=== PATIENT | male | born 1960 | race Caucasian/White ===

== ENCOUNTER → 2017-08-09 | Outpatient (CLI) | payer MEDICARE, OTHER ==
[~2017-08-09] MED LIST: ALBU90OI INH; ALBU90OI6 INH; ALLO100 PO; AMLO5 PO; ATOR10 PO; AZIT500; Aranesp60 MCG/0.3 INJ; Azopt10 ML BOTHEYES; BENZ100A PO; BIOTIN5 MG MT; BUDE6HFA INH; BUME2 PO; CALC.25 PO; CALCAVITDA PO; CARV25 PO; CEFD300 PO; CLON.5 PO; CYCL10 PO; CYCL100 PO; CYCL25 PO; ELIQUIS2.5 MG PO; ENAL2.5 MT; ENAL5 PO; FEBU40TA PO; FURO40 PO; GABA100 PO; GUAI600ER PO; GUAI600T33 PO; HYDACE10B PO; HYDR1TAB94 PO; KAOPECTATE PO; LEVFLO250 PO; MEROPENEM-500 MG/50 IV; METR500 PO; MOXI400 PO; MYCO250 PO; Merrem1000 MG INJ; Mucinex1200 MG PO; NEBI5 PO; NIFE10 PO; Norco 5-325 Ta1 EACH PO; OMEP20ER PO; PRAV20 PO; PRED10 PO; PRED5 PO; Prednisone20 MG PO; Prilosec Otc20 MG PO; RISE35 PO; SACC250C PO; SIMV40 PO; SODBIC650 PO; Sodium Bicarbo650 MG PO; TIOT18 INH; TRAZ50 PO; Uloric80 MG PO; VALCYTE; VALGANCICLOVIR450 MG PO; VELPHORO500 MG PO; Valcyte450 MG MT; WARF5 PO; XARELTO15 MG PO; Zithromax250 MG PO; Zofran4 MG PO
[2017-08-11 11:07] LABS: Albumin 3.6 g/dL (3.5-5.0); Albumin 52.3 % (45.0-80.0); Protein, Total 6.8 g/dL (6.2-8.2)
== END ==
LOC: LAB SHORT 11:09 → LAB 11:09
PROVIDERS: Internal Medicine Nephrology
DX: E83.52 Hypercalcemia (principal)
CPT/HCPCS: 84165; 86334

== ENCOUNTER → 2017-08-27 | Outpatient (CLI) | payer MEDICARE, OTHER | END | disposition home or self-care (01) | LOC: LAB 11:57 → LAB SHORT 11:57 | DX: R19.7 Diarrhea, unspecified (principal) | CPT/HCPCS: 87493 ==

== ENCOUNTER → 2017-08-31 | Outpatient (CLI) | payer MEDICARE, OTHER | LOC: OLS 08:44 → LAB SHORT 08:44 | DX: R19.7 Diarrhea, unspecified (principal) | CPT/HCPCS: 87328 ==

== ENCOUNTER → 2017-09-16 | Outpatient (CLI) | payer MEDICARE, OTHER | LOC: PLD 07:37 → LAB SHORT 07:37 | DX: Q82.8 Other specified congenital malformations of skin (principal) | CPT/HCPCS: 88305 ==

== ENCOUNTER → 2018-04-09 | Outpatient (CLI) | payer MEDICARE ==
[~2018-04-09] MED LIST changes: +AZIT250 PO; +CEFEPIME HCL IV; +LEVFLO500 PO; +MEGESTROL400 MG/10 PO; +MERIBIN5 MG PO; +Norco 10-325 T1 EACH PO; -PRAV20 PO; +Pravachol40 MG PO; +TOBRAMYCIN300 MG/5 M IH
[2018-04-09 11:30] LABS: BASOPHILS ABSOLUTE AUTO 0.08 K/mm3 (0.00-0.23); BASOPHILS PERCENT AUTO 1 % (0-2); EOSINOPHILS PERCENT AUTO 3 % (0-6); Hematocrit 40.7 % (37.0-53.0); Hemoglobin 12.9 g/dL (13.5-17.5); IMMATURE GRAN ABSOLUTE AUTO 0.06 K/mm3 (0.00-0.10); IMMATURE GRAN PERCENT AUTO 0 % (0-1); LYMPHOCYTES ABSOLUTE AUTO 2.39 K/mm3 (0.84-5.20); LYMPHOCYTES PERCENT AUTO 16 % (21-46); MONOCYTES ABSOLUTE AUTO 0.76 K/mm3 (0.16-1.47); MONOCYTES PERCENT AUTO 5 % (4-13); Mean Corpuscular HGB 31.2 pg (26.0-34.0); Mean Corpuscular HGB Conc 31.7 g/dL (31.5-36.5); Mean Corpuscular Volume 98 fL (80-100); Mean Platelet Volume 9.5 fL (9.1-12.4); NEUTROPHILS ABSOLUTE AUTO 11.35 K/mm3 (1.96-9.15); NEUTROPHILS PERCENT AUTO 75 % (41-73); Platelet Count 225 K/mm3 (150-400); RDW Standard Deviation 50.8 fL (35.1-46.3); Red Blood Cell Count 4.14 M/mm3 (4.30-5.90); White Blood Cell Count 15.14 K/mm3 (4.00-11.30)
[2018-04-09 11:33] LABS: Bun/Creatinine Ratio 6.2 (12.0-20.0); Calcium, Blood 8.1 mg/dL (8.5-10.1); Creatinine, Blood 5.97 mg/dL (0.60-1.20); Potassium, Blood 4.6 mmol/L (3.5-5.5)
[2018-04-10 15:27] LABS: Adenovirus F 40/41 Not Detected (NOT DETECT); Astrovirus Not Detected (NOT DETECT); Campylobacter Sp Not Detected (NOT DETECT); Cryptosporidium Not Detected (NOT DETECT); Cyclospora Cayetanensis Not Detected (NOT DETECT); E. Coli O157 Not Detected (NOT DETECT); Entamoeba Histolytica Not Detected (NOT DETECT); Enteroaggregative E. coli-EAEC Not Detected (NOT DETECT); Enteropathogenic E. coli-EPEC Not Detected (NOT DETECT); Enterotoxigenic E. coli-ETEC Not Detected (NOT DETECT); Giardia Lamblia Not Detected (NOT DETECT); Plesiomonas Shigelloides Not Detected (NOT DETECT); Rotavirus A Not Detected (NOT DETECT); Salmonella Sp Not Detected (NOT DETECT); Sapovirus Not Detected (NOT DETECT); Shiga Toxin-prod E. coli-STEC Not Detected (NOT DETECT); Shigella/Enteroin E. coli-EIEC Not Detected (NOT DETECT); Vibrio Cholerae Not Detected (NOT DETECT); Vibrio Sp Not Detected (NOT DETECT); Yersinia Enterocolitica Not Detected (NOT DETECT)
[2018-04-10 19:15] LABS: Norovirus GI/GII Detected (NOT DETECT)
== END ==
LOC: LAB EV 11:21 → LAB SHORT 11:21
PROVIDERS: Emergency Medicine
DX: R55 Syncope and collapse (principal); R19.7 Diarrhea, unspecified
CPT/HCPCS: 80048; 85025; 87507

== ENCOUNTER 2019-01-21 17:37 | Emergency (ER) | payer MEDICARE, OTHER ==
[~2019-01-21] VITALS: Ht 188 cm; Wt 90.7 kg
== END 2019-01-21 19:43 | disposition home or self-care (01) ==
LOC: ER 17:37
DX: I82.612 Acute embolism and thrombosis of superficial veins of left upper extremity (principal); Z79.01 Long term (current) use of anticoagulants
CPT/HCPCS: 93971; 99283-25

== ENCOUNTER → 2019-03-27 | Outpatient (CLI) | payer MEDICARE, OTHER | END | disposition home or self-care (01) | LOC: LAB SHORT 10:42 → PLD 10:42 | DX: D04.5 Carcinoma in situ of skin of trunk (principal) | CPT/HCPCS: 88305 ==

== ENCOUNTER 2019-09-18 18:39 | Emergency (ER) | payer MEDICARE, OTHER ==
[~2019-09-18] VITALS: Ht 188 cm; Wt 102.1 kg
[2019-09-18 18:58] LABS: Source, Urine Clean Catch
[2019-09-18 19:06] LABS: Bilirubin, Urine Neg (Neg); Blood, Urine 1+ (Neg); Glucose Qualitative, Urine Neg (Neg); Ketones, Urine Neg (Neg); Leukocyte Esterase, Urine Neg (Neg); Nitrite, Urine Neg (Neg); Protein, Urine 1+ (Neg); Urobilinogen, Urine NORM (Normal)
[2019-09-18 19:10] LABS: Appearance, Urine Clear (Clear); Color, Urine Yellow (P-Yellow)
[2019-09-18 19:13] LABS: Bacteria Not Seen /hpf; Red Blood Cells, Urine Not Seen /hpf (0-2); Squamous Epithelial Cells Few /hpf (Few)
[2019-09-18 19:16] LABS: BASOPHILS ABSOLUTE AUTO 0.05 K/mm3 (0.00-0.23); BASOPHILS PERCENT AUTO 0 % (0-2); EOSINOPHILS ABSOLUTE AUTO 0.06 K/mm3 (0.00-0.68); EOSINOPHILS PERCENT AUTO 0 % (0-6); Hematocrit 44.3 % (37.0-53.0); Hemoglobin 14.2 g/dL (13.5-17.5); IMMATURE GRAN ABSOLUTE AUTO 0.09 K/mm3 (0.00-0.10); IMMATURE GRAN PERCENT AUTO 0 % (0-1); LYMPHOCYTES PERCENT AUTO 14 % (21-46); MONOCYTES ABSOLUTE AUTO 1.43 K/mm3 (0.16-1.47); MONOCYTES PERCENT AUTO 7 % (4-13); Mean Corpuscular HGB 29.2 pg (26.0-34.0); Mean Corpuscular HGB Conc 32.1 g/dL (31.5-36.5); Mean Corpuscular Volume 91 fL (80-100); Mean Platelet Volume 9.7 fL (9.1-12.4); NEUTROPHILS ABSOLUTE AUTO 15.93 K/mm3 (1.96-9.15); NEUTROPHILS PERCENT AUTO 78 % (41-73); Platelet Count 191 K/mm3 (150-400); RDW Coefficient Variation 12.8 % (11.7-14.2); RDW Standard Deviation 42.6 fL (35.1-46.3); Red Blood Cell Count 4.87 M/mm3 (4.30-5.90); White Blood Cell Count 20.36 K/mm3 (4.00-11.30)
[2019-09-18 19:34] LABS: Alanine Aminotransfer (ALT/SGP 29 U/L (12-78); Albumin, Blood 3.1 g/dL (3.4-5.0); Albumin/Globulin Ratio 0.8 (0.8-1.8); Alk Phos 100 U/L (50-136); Anion Gap 8 mmol/L (6-16); Aspartate Aminotrans (AST/SGOT 36 U/L (12-37); Bilirubin, Total 0.6 mg/dL (0.1-1.0); Blood Urea Nitrogen 23 mg/dL (8-24); Bun/Creatinine Ratio 20.2 (12.0-20.0); CO2, Blood 20 mmol/L (21-32); Calcium, Blood 8.1 mg/dL (8.5-10.1); Chloride, Blood 107 mmol/L (98-108); Creatinine, Blood 1.14 mg/dL (0.60-1.20); Globulin, Blood 4.1 g/dL (2.2-4.0); Glomerular Filtration Rate >60 (60-); Glucose, Blood 103 mg/dL (70-99); Potassium, Blood 4.6 mmol/L (3.5-5.5); Sodium, Blood 135 mmol/L (136-145); Total Protein, Blood 7.2 g/dL (6.4-8.2)
[2019-09-18] MEDS ORDERED: Phospha 250 Ne250 MG PO (20:18)
[2019-09-18] MEDS ORDERED: ACET500 PO (20:19)
[2019-09-18] MEDS ORDERED: TACR1 PO (20:19)
[2019-09-18] MEDS ORDERED: SODIUM CHLORIDE4 ML INH (20:19)
[2019-09-18] MEDS ORDERED: Ventolin/Prove6.7 GM INH (20:20)
[2019-09-18] MEDS ORDERED: Calcitriol0.25 MCG PO (20:21)
[2019-09-18] MEDS ORDERED: CARVEDILOL3.125 MG PO (20:22)
[2019-09-18] MEDS ORDERED: SODBIC650 PO (20:23)
[2019-09-18] MEDS ORDERED: TUMS500 MG PO (20:23)
[2019-09-18] MEDS ORDERED: Vitamin D2000 UNIT PO (20:24)
[2019-09-18] MEDS ORDERED: CENTRUM SILVER1 EAC2 PO (20:24)
[2019-09-18] MEDS ORDERED: AZIT250 PO (20:25)
== END 2019-09-18 20:55 | disposition home or self-care (01) ==
LOC: ER 18:39
PROVIDERS: Physician Assistant
DX: R10.9 Unspecified abdominal pain (principal); D72.829 Elevated white blood cell count, unspecified; R50.9 Fever, unspecified; M54.9 Dorsalgia, unspecified; G89.29 Other chronic pain; Z87.01 Personal history of pneumonia (recurrent); Z86.718 Personal history of other venous thrombosis and embolism; M10.9 Gout, unspecified; Z79.52 Long term (current) use of systemic steroids; Z79.899 Other long term (current) drug therapy; Z79.2 Long term (current) use of antibiotics; Z94.0 Kidney transplant status
CPT/HCPCS: 36415; 80053; 81001; 83690; 85025; 99284

== ENCOUNTER → 2019-10-05 | Outpatient (CLI) | payer MEDICARE, OTHER ==
[~2019-10-05] MED LIST changes: +ACET500 PO; +CARVEDILOL3.125 MG PO; +CENTRUM SILVER1 EAC2 PO; +Calcitriol0.25 MCG PO; +Phospha 250 Ne250 MG PO; +SODIUM CHLORIDE4 ML INH; +TACR1 PO; +TUMS500 MG PO; +Ventolin/Prove6.7 GM INH; +Vitamin D2000 UNIT PO
== END | disposition home or self-care (01) ==
LOC: PLD 12:56 → LAB SHORT 12:56
DX: C44.622 Squamous cell carcinoma of skin of right upper limb, including shoulder (principal); D04.39 Carcinoma in situ of skin of other parts of face
CPT/HCPCS: 88305

== ENCOUNTER 2020-12-22 16:59 | Emergency (ER) | payer MEDICARE, OTHER ==
[~2020-12-22] VITALS: Ht 190.5 cm; Wt 108.9 kg
[2020-12-22 18:46] LABS: SARS-Cov-2 (COVID-19) PCR, MMC NEGATIVE (NEGATIVE)
== END 2020-12-22 20:18 | disposition home or self-care (01) ==
LOC: ER 16:59
PROVIDERS: Physician Assistant
DX: S81.811A Laceration without foreign body, right lower leg, initial encounter (principal); Z20.822 Contact with and (suspected) exposure to COVID-19; N18.6 End stage renal disease; Z23 Encounter for immunization; Z79.899 Other long term (current) drug therapy; Z79.01 Long term (current) use of anticoagulants; X58.XXXA Exposure to other specified factors, initial encounter
CPT/HCPCS: 12004; 36415; 73590; 90471; 90714; 99283-25; U0004

== ENCOUNTER 2020-12-30 06:33 | Emergency (ER) | payer MEDICARE, OTHER ==
[~2020-12-30] VITALS: Ht 190.5 cm; Wt 108.9 kg
[2020-12-30] MEDS ORDERED: SULFAMETHOXAZO1 EAC1 PO (06:55)
[2020-12-30] MEDS ORDERED: AMOX-CLAV 875-1 EAC5 PO (06:55)
== END 2020-12-30 07:30 | disposition home or self-care (01) ==
LOC: ER 06:33
DX: S81.811D Laceration without foreign body, right lower leg, subsequent encounter (principal); L03.115 Cellulitis of right lower limb; N18.6 End stage renal disease; Z79.899 Other long term (current) drug therapy; Z79.01 Long term (current) use of anticoagulants; Z86.718 Personal history of other venous thrombosis and embolism
CPT/HCPCS: 99282

== ENCOUNTER → 2021-04-29 | Outpatient (CLI) | payer MEDICARE, OTHER ==
[~2021-04-29] MED LIST changes: +AMOX-CLAV 875-1 EAC5 PO; +SULFAMETHOXAZO1 EAC1 PO
== END | disposition home or self-care (01) ==
LOC: LAB SHORT 08:01
DX: D04.61 Carcinoma in situ of skin of right upper limb, including shoulder (principal)
CPT/HCPCS: 88305

== ENCOUNTER → 2021-05-15 | Outpatient (CLI) | payer MEDICARE, OTHER | END | disposition home or self-care (01) | LOC: LAB SHORT 14:59 | DX: D04.5 Carcinoma in situ of skin of trunk (principal); L90.5 Scar conditions and fibrosis of skin | CPT/HCPCS: 88305 ==

== ENCOUNTER → 2021-06-10 | Outpatient (CLI) | payer MEDICARE, OTHER | END | disposition home or self-care (01) | LOC: LAB SHORT 08:01 | DX: L57.0 Actinic keratosis (principal); L57.8 Other skin changes due to chronic exposure to nonionizing radiation | CPT/HCPCS: 88305 ==

== ENCOUNTER → 2022-04-14 | Outpatient (CLI) | payer MEDICARE, OTHER | END | disposition home or self-care (01) | LOC: PLD 08:11 → LAB SHORT 08:11 | DX: C44.329 Squamous cell carcinoma of skin of other parts of face (principal) | CPT/HCPCS: 88305 ==

== ENCOUNTER 2022-08-25 09:12 | Day surgery (SDC) | payer MEDICARE, OTHER ==
[~2022-08-25] VITALS: Ht 190.5 cm; Wt 102.7 kg
[2022-08-25] MEDS ORDERED: AZIT250 (09:48)
[2022-08-25] MEDS ORDERED: ALBU2.5V5 (09:48)
[2022-08-25] MEDS ORDERED: TACR1 (09:49)
[2022-08-25] MEDS ORDERED: POTA20LUD (09:49)
[2022-08-25] MEDS ORDERED: FURO20 (09:49)
[2022-08-25 10:45] VITALS: BP 105/91
--- NOTE | 2022-08-25 11:04 | NUR ---
08/25/22 1104 ANTHONY FORD NOTED - PT STATES THIS IS NORMAL FOR HIM. IT WOULD BE ABNORMAL IF HE DIDN'T HAVE THEM SINCE HE HAS BRONCHIALECTESIS
== END 2022-08-25 11:00 | disposition home or self-care (01) ==
LOC: ORSCSDS 09:12
PROVIDERS: Surgery
PROC: 0DJD8ZZ Inspection of Lower Intestinal Tract, Via Natural or Artificial Opening Endoscopic (ICD-10-PCS; principal; 2022-08-25 10:30)
DX: R10.30 Lower abdominal pain, unspecified (principal); R14.0 Abdominal distension (gaseous); K57.30 Diverticulosis of large intestine without perforation or abscess without bleeding; K64.8 Other hemorrhoids; K21.9 Gastro-esophageal reflux disease without esophagitis; E78.5 Hyperlipidemia, unspecified; I12.9 Hypertensive chronic kidney disease with stage 1 through stage 4 chronic kidney disease, or unspecified chronic kidney disease; N18.9 Chronic kidney disease, unspecified; Z94.0 Kidney transplant status; Z79.01 Long term (current) use of anticoagulants; Z79.899 Other long term (current) drug therapy
CPT/HCPCS: J2704; J7120

== ENCOUNTER 2023-04-16 07:07 | Day surgery (SDC) | payer MEDICARE, OTHER ==
[~2023-04-16] VITALS: Ht 188 cm; Wt 103.8 kg
[~2023-04-16 07:07] MED LIST changes: +ALBU2.5V5; +AZIT250; +FURO20; +POTA20LUD; +TACR1
--- NOTE | 2023-04-16 09:23 | NUR ---
04/16/23 0923 Anuradha Mckenna SMALL CIRCULAR ABRASION ON PT RIGHT JOE. DR KOENIG NOTIFIED. OK TO CONTINUE.
[2023-04-16 11:02] VITALS: BP 126/99
--- NOTE | 2023-04-16 11:18 | NUR ---
04/16/23 1118 Santino Cartagena PT VSS IN SDU. PT STATED PAIN 5/10, PT STATED TOLERABLE NUMBER TO GO HOME. PT WAS GIVEN ORAL PAIN MEDICATION, PT STATED PAIN 3/10 ACHE AT OPERATIVE SITE RIGHT BEFORE DISCHARGE. DISCHARGE INSTRUCTIONS GIVEN TO PATIENT WITH AT BEDSIDE. ALL QUESTIONS ANSWERED BEFORE DISCHARGE. SEE VS STRIP FOR COMPLETE DETAILS. POLAR PACK EXPAINED AND SENT HOME WITH PATIENT.
== END 2023-04-16 11:18 | disposition home or self-care (01) ==
LOC: ORSCSDS 07:07
PROVIDERS: Orthopaedic Surgery
PROC: 0SQC4ZZ Repair Right Knee Joint, Percutaneous Endoscopic Approach (ICD-10-PCS; principal; 2023-04-16 08:30)
DX: S83.281A Other tear of lateral meniscus, current injury, right knee, initial encounter (principal); Z94.0 Kidney transplant status; Z86.718 Personal history of other venous thrombosis and embolism; I10 Essential (primary) hypertension; Z79.01 Long term (current) use of anticoagulants; Z79.899 Other long term (current) drug therapy
CPT/HCPCS: A9270; J0171; J0690; J1100; J2250; J2405; J2704; J2795; J3010; J7120

== ENCOUNTER → 2023-05-20 | Outpatient (CLI) | payer MEDICARE, OTHER | LOC: LAB 12:05 → LAB SHORT 12:05 | DX: Z47.89 Encounter for other orthopedic aftercare (principal) | CPT/HCPCS: 87070; 87075; 87205 ==

== ENCOUNTER 2023-08-28 08:23 | Inpatient (IN) | payer MEDICARE, OTHER ==
[~2023-08-28] VITALS: Ht 188 cm; Wt 103.0 kg
[~2023-08-28 08:23] MED LIST changes: -ALBU2.5V5; +ALBU2.5V5 INH; -TACR1
[2023-08-28] MEDS ORDERED: SULTRIDS PO (08:45)
[2023-08-28] MEDS ORDERED: AMOX-CLAV 875-1 EAC5 PO (08:47)
[2023-08-28 09:32] LABS: BASOPHILS ABSOLUTE AUTO 0.05 K/mm3 (0.00-0.23); BASOPHILS PERCENT AUTO 1 % (0-2); EOSINOPHILS ABSOLUTE AUTO 0.07 K/mm3 (0.00-0.68); EOSINOPHILS PERCENT AUTO 1 % (0-6); Hematocrit 45.8 % (37.0-53.0); Hemoglobin 14.8 g/dL (13.5-17.5); IMMATURE GRAN ABSOLUTE AUTO 0.02 K/mm3 (0.00-0.10); IMMATURE GRAN PERCENT AUTO 0 % (0-1); LYMPHOCYTES PERCENT AUTO 18 % (21-46); MONOCYTES ABSOLUTE AUTO 0.55 K/mm3 (0.16-1.47); MONOCYTES PERCENT AUTO 7 % (4-13); Mean Corpuscular HGB 28.8 pg (26.0-34.0); Mean Corpuscular HGB Conc 32.3 g/dL (31.5-36.5); Mean Corpuscular Volume 89 fL (80-100); Mean Platelet Volume 8.9 fL (9.1-12.4); NEUTROPHILS PERCENT AUTO 74 % (41-73); Platelet Count 181 K/mm3 (150-400); RDW Standard Deviation 45.5 fL (35.1-46.3); Red Blood Cell Count 5.14 M/mm3 (4.30-5.90); White Blood Cell Count 8.29 K/mm3 (4.00-11.30)
[2023-08-28 10:20] LABS: Albumin, Blood 3.3 g/dL (3.4-5.0); Albumin/Globulin Ratio 0.9 (0.8-1.8); Bilirubin, Total 0.5 mg/dL (0.1-1.0); Bun/Creatinine Ratio 13.6 (12.0-20.0); Calcium, Blood 9.2 mg/dL (8.5-10.1); Creatinine, Blood 1.18 mg/dL (0.60-1.20); Globulin, Blood 3.5 g/dL (2.2-4.0); Potassium, Blood 4.9 mmol/L (3.5-5.5); Total Protein, Blood 6.8 g/dL (6.4-8.2)
[2023-08-28] MEDS ORDERED: Ondansetron 4 MG TAB PO PRN (11:40)
[2023-08-28] MEDS ORDERED: Ketorolac Tromethamine 30mg Vial IV PRN (11:55)
[2023-08-28] MEDS ORDERED: Cefepime HCl 1,000 MG in NS 100 ML IV SCH (12:00)
[2023-08-28 13:33] VITALS: BP 136/104
[2023-08-28] MEDS ORDERED: Albuterol 2.5 MG/3 ML VIAL INH PRN (15:00)
[2023-08-28 15:29] VITALS: BP 121/95
--- NOTE | 2023-08-28 16:48 | NUR ---
ER ADMIT Patient alert & oriented x4. Independent in the room. Admitted for cellulitis, left foot 2nd toe swollen and red, redness descending downward towards dorsum of foot. The 2nd left toe, old healing ulcer, skin is dry, no open wound bed and drainage. And left heal small dark purple area noted below surface of skin. IV Vanco administred. Vitals stable. Will continue plan of care.
[2023-08-28 19:09] VITALS: BP 132/95
[2023-08-28] MEDS ORDERED: Tacrolimus 1 MG Cap PO SCH (21:00)
[2023-08-28] MEDS ORDERED: Gabapentin 300 MG Cap PO SCH (21:00)
[2023-08-28] MEDS ORDERED: Mycophenolate Mofetil 250 MG Cap PO SCH (21:00)
[2023-08-28] MEDS ORDERED: Apixaban 5 MG Tab PO SCH (21:00)
[2023-08-28] MEDS ORDERED: Carvedilol 3.125 MG Tab PO SCH (21:00)
[2023-08-28] MEDS ORDERED: Sodium Chloride For Inhalation 7% 4 ML VIAL.NEB INH SCH (21:45)
[2023-08-28] MEDS ORDERED: NS 250 ML IV PRN (23:20)
[2023-08-29] MEDS ORDERED: Vancomycin HCL 1,250 MG in NS 250 ML IV SCH (01:00)
[2023-08-29 03:02] VITALS: BP 119/94
--- NOTE | 2023-08-29 04:10 | NUR ---
SHIFT SUMMARY BETTYE WAS ALERT AND FULLY ORIENTED ON ASSESSMENT AND INDEPENDENT IN THE ROOM. PT HAS CRACKLES IN BILATERAL LOWER LUNG TABARES THAT HE STATES IS CHRONIC PERIMETER OF REDNESS ON AFFECTED FOOT MARKED THIS SHIFT. NO NEW COMPLAINTS NO ACUTE EVENTS PT RESTING IN BED AT A LOW POSITION WITH CALL LIGHT IN REACH
[2023-08-29 05:14] LABS: BASOPHILS ABSOLUTE AUTO 0.03 K/mm3 (0.00-0.23); BASOPHILS PERCENT AUTO 0 % (0-2); EOSINOPHILS ABSOLUTE AUTO 0.13 K/mm3 (0.00-0.68); EOSINOPHILS PERCENT AUTO 2 % (0-6); Hematocrit 45.7 % (37.0-53.0); Hemoglobin 14.6 g/dL (13.5-17.5); IMMATURE GRAN ABSOLUTE AUTO 0.03 K/mm3 (0.00-0.10); IMMATURE GRAN PERCENT AUTO 0 % (0-1); LYMPHOCYTES ABSOLUTE AUTO 2.02 K/mm3 (0.84-5.20); LYMPHOCYTES PERCENT AUTO 27 % (21-46); MONOCYTES PERCENT AUTO 8 % (4-13); Mean Corpuscular HGB 28.9 pg (26.0-34.0); Mean Corpuscular HGB Conc 31.9 g/dL (31.5-36.5); Mean Corpuscular Volume 90 fL (80-100); Mean Platelet Volume 9.4 fL (9.1-12.4); NEUTROPHILS PERCENT AUTO 63 % (41-73); Platelet Count 179 K/mm3 (150-400); RDW Standard Deviation 46.2 fL (35.1-46.3); Red Blood Cell Count 5.06 M/mm3 (4.30-5.90); White Blood Cell Count 7.51 K/mm3 (4.00-11.30)
[2023-08-29 05:54] LABS: Albumin, Blood 3.2 g/dL (3.4-5.0); Albumin/Globulin Ratio 0.9 (0.8-1.8); Bilirubin, Total 0.6 mg/dL (0.1-1.0); Calcium, Blood 9.2 mg/dL (8.5-10.1); Creatinine, Blood 1.27 mg/dL (0.60-1.20); Globulin, Blood 3.5 g/dL (2.2-4.0); Potassium, Blood 4.8 mmol/L (3.5-5.5); Total Protein, Blood 6.7 g/dL (6.4-8.2)
[2023-08-29] MEDS ORDERED: Gabapentin 100 MG Cap PO SCH (09:00)
[2023-08-29] MEDS ORDERED: Tacrolimus 1 MG Cap PO SCH (09:00)
[2023-08-29] MEDS ORDERED: Enoxaparin 40 MG/0.4 ML SYR SC SCH (09:00)
[2023-08-29] MEDS ORDERED: Cholecalciferol 1000 Unit Tablet (=25MCG) PO SCH (09:00)
[2023-08-29] MEDS ORDERED: Multivitamins/Minerals 1 Tab PO SCH (09:00)
[2023-08-29] MEDS ORDERED: PredniSONE 5 MG Tab PO SCH (09:00)
[2023-08-29 09:09] VITALS: BP 129/92
[2023-08-29 09:10] VITALS: BP 113/89
[2023-08-29] MEDS ORDERED: Lactobacil 2-S.Thermo-Bifido 1 1 Cap PO SCH (09:50)
[2023-08-29] MEDS ORDERED: NS 1,000 ML IV SCH (10:45)
--- NOTE | 2023-08-29 18:02 | NUR ---
SHIFT SUMMARY PT AXO, PLEASANT AND COOPERATIVE WITH CARE. UP AD RICKY INDEPENDENTLY IN ROOM. PT REPORTS DIARRHEA, DR SHINE NOTIFIED AND PROBIOTIC ORDERED. IV PATENT AND INFUSING PER EMAR. NO ACUTE CHANGES THIS SHIFT. BED IN LOW POSITON, CALL LIGHT WITHIN REACH.
[2023-08-29 18:13] VITALS: BP 127/94
[2023-08-29 19:30] VITALS: BP 112/86
[2023-08-30 00:21] LABS: Vancomycin, Trough 17.9 ug/mL (5.0-10.0)
[2023-08-30 00:26] LABS: BASOPHILS ABSOLUTE AUTO 0.04 K/mm3 (0.00-0.23); BASOPHILS PERCENT AUTO 1 % (0-2); EOSINOPHILS ABSOLUTE AUTO 0.11 K/mm3 (0.00-0.68); EOSINOPHILS PERCENT AUTO 1 % (0-6); Hematocrit 43.1 % (37.0-53.0); Hemoglobin 13.9 g/dL (13.5-17.5); IMMATURE GRAN ABSOLUTE AUTO 0.01 K/mm3 (0.00-0.10); IMMATURE GRAN PERCENT AUTO 0 % (0-1); LYMPHOCYTES ABSOLUTE AUTO 2.08 K/mm3 (0.84-5.20); LYMPHOCYTES PERCENT AUTO 25 % (21-46); MONOCYTES ABSOLUTE AUTO 0.58 K/mm3 (0.16-1.47); MONOCYTES PERCENT AUTO 7 % (4-13); Mean Corpuscular HGB 28.7 pg (26.0-34.0); Mean Corpuscular HGB Conc 32.3 g/dL (31.5-36.5); Mean Corpuscular Volume 89 fL (80-100); Mean Platelet Volume 9.3 fL (9.1-12.4); NEUTROPHILS ABSOLUTE AUTO 5.58 K/mm3 (1.96-9.15); NEUTROPHILS PERCENT AUTO 66 % (41-73); Platelet Count 189 K/mm3 (150-400); RDW Coefficient Variation 13.6 % (11.7-14.2); RDW Standard Deviation 44.6 fL (35.1-46.3); Red Blood Cell Count 4.84 M/mm3 (4.30-5.90)
[2023-08-30 00:33] LABS: Alanine Aminotransfer (ALT/SGP 15 U/L (12-78); Albumin/Globulin Ratio 0.9 (0.8-1.8); Alk Phos 97 U/L (50-136); Anion Gap 11 mmol/L (3-11); Aspartate Aminotrans (AST/SGOT 13 U/L (12-37); Bilirubin, Total 0.4 mg/dL (0.1-1.0); Blood Urea Nitrogen 23 mg/dL (8-24); Bun/Creatinine Ratio 19.2 (12.0-20.0); CO2, Blood 22 mmol/L (21-32); Calcium, Blood 8.9 mg/dL (8.5-10.1); Chloride, Blood 112 mmol/L (98-108); Globulin, Blood 3.3 g/dL (2.2-4.0); Glomerular Filtration Rate 69 (60-); Glucose, Blood 100 mg/dL (70-99); Potassium, Blood 4.6 mmol/L (3.5-5.5); Sodium, Blood 140 mmol/L (136-145); Total Protein, Blood 6.3 g/dL (6.4-8.2)
[2023-08-30 03:36] VITALS: BP 126/95
--- NOTE | 2023-08-30 04:25 | NUR ---
SHIFT SUMMARY BETTYE WAS ALERT AND FULLY ORIENTED AT START OF SHIFT. PT IS LOOKING FORWARD TO DISCHARGE. AFFECTED FOOT CONTINUES TO HAVE REDUCED REDNESS, AND BORDERS ARE RECEEDING. NO CHANGES TO PT CONDITION, NO ACUTE EVENTS. PT RESTING IN BED AT A LOW POSITION WITH CALL LIGHT IN REACH.
[2023-08-30 05:52] LABS: Albumin, Blood 3.1 g/dL (3.4-5.0); Albumin/Globulin Ratio 0.9 (0.8-1.8); Bilirubin, Total 0.6 mg/dL (0.1-1.0); Calcium, Blood 9.2 mg/dL (8.5-10.1); Creatinine, Blood 1.12 mg/dL (0.60-1.20); Globulin, Blood 3.5 g/dL (2.2-4.0); Potassium, Blood 4.8 mmol/L (3.5-5.5); Total Protein, Blood 6.6 g/dL (6.4-8.2)
[2023-08-30 07:30] VITALS: BP 124/95
[2023-08-30] MEDS ORDERED: Calcitriol 0.25 MCG Cap PO SCH (09:00)
[2023-08-30] MEDS ORDERED: VISBIOME 112.51 EACH PO (11:44)
[2023-08-30] MEDS ORDERED: CIPR500 PO (11:44)
== END 2023-08-30 11:54 | disposition home or self-care (01) | DRG 603 ==
LOC: ER 08:23 → MEDS 08:24
PROVIDERS: Student in an Organized Health Care Education/Training Program; ADMIT Family Medicine
DX: L03.116 Cellulitis of left lower limb (principal); T86.19 Other complication of kidney transplant; D84.821 Immunodeficiency due to drugs; L03.032 Cellulitis of left toe; N18.9 Chronic kidney disease, unspecified; I12.9 Hypertensive chronic kidney disease with stage 1 through stage 4 chronic kidney disease, or unspecified chronic kidney disease; J47.9 Bronchiectasis, uncomplicated; Z86.718 Personal history of other venous thrombosis and embolism; Z79.01 Long term (current) use of anticoagulants; Z79.69 Long term (current) use of other immunomodulators and immunosuppressants; Z79.621 Long term (current) use of calcineurin inhibitor; Z79.2 Long term (current) use of antibiotics; Z79.52 Long term (current) use of systemic steroids
CPT/HCPCS: 36415; 80053; 80202; 85025; 94640; 94664; 94760; 96365; 96366; 96367; 96375; 96376; 99284-25; A9270; G0378; J0692; J3370; J7030; J7050; J7507; J7512; J7517

== ENCOUNTER 2024-04-26 17:51 | Inpatient (IN) | payer MEDICARE, OTHER ==
[~2024-04-26] VITALS: Ht 190.5 cm; Wt 102.7 kg
[~2024-04-26 17:51] MED LIST changes: +CIPR500 PO; +SULTRIDS PO; +VISBIOME 112.51 EACH PO
[2024-04-26 18:37] LABS: BASOPHILS ABSOLUTE AUTO 0.02 K/mm3 (0.00-0.23); BASOPHILS PERCENT AUTO 0 % (0-2); EOSINOPHILS PERCENT AUTO 0 % (0-6); Hematocrit 40.5 % (37.0-53.0); Hemoglobin 12.8 g/dL (13.5-17.5); IMMATURE GRAN ABSOLUTE AUTO 0.02 K/mm3 (0.00-0.10); IMMATURE GRAN PERCENT AUTO 0 % (0-1); LYMPHOCYTES ABSOLUTE AUTO 1.88 K/mm3 (0.84-5.20); LYMPHOCYTES PERCENT AUTO 18 % (21-46); MONOCYTES ABSOLUTE AUTO 0.58 K/mm3 (0.16-1.47); MONOCYTES PERCENT AUTO 5 % (4-13); Mean Corpuscular HGB 29.2 pg (26.0-34.0); Mean Corpuscular HGB Conc 31.6 g/dL (31.5-36.5); Mean Corpuscular Volume 92 fL (80-100); Mean Platelet Volume 9.9 fL (9.1-12.4); NEUTROPHILS ABSOLUTE AUTO 8.23 K/mm3 (1.96-9.15); NEUTROPHILS PERCENT AUTO 77 % (41-73); Platelet Count 119 K/mm3 (150-400); RDW Coefficient Variation 14.1 % (11.7-14.2); RDW Standard Deviation 48.3 fL (35.1-46.3); Red Blood Cell Count 4.39 M/mm3 (4.30-5.90); White Blood Cell Count 10.73 K/mm3 (4.00-11.30)
[2024-04-26 18:54] LABS: Albumin/Globulin Ratio 0.8 (0.8-1.8); Bilirubin, Total 0.5 mg/dL (0.1-1.0); Bun/Creatinine Ratio 18.5 (12.0-20.0); Calcium, Blood 8.7 mg/dL (8.5-10.1); Creatinine, Blood 2.11 mg/dL (0.60-1.20); Globulin, Blood 3.9 g/dL (2.2-4.0); Potassium, Blood 4.6 mmol/L (3.5-5.5); Total Protein, Blood 6.9 g/dL (6.4-8.2)
[2024-04-26] MEDS ORDERED: Ondansetron HCl 2 MG / ML 2ML Vial IV ONE (20:10)
[2024-04-26] MEDS ORDERED: Acetaminophen 500 MG Tab PO ONE (20:15)
[2024-04-26 20:33] LABS: CORONAVIRUS COVID-19 AG Negative (NEGATIVE); INFLUENZA A AG Positive (NEGATIVE); INFLUENZA B AG Negative (NEGATIVE)
[2024-04-26] MEDS ORDERED: NS 1,000 ML IV SCH (21:15)
[2024-04-26] MEDS ORDERED: Oseltamivir Phosphate 75 MG Cap PO ONE (22:20)
[2024-04-26] MEDS ORDERED: FLU VACC TS2024-25(6MOS UP)/PF 45 MCG/0.5 ML SYRINGE IM ONE (22:45)
[2024-04-27] VITALS (12 sets, daily range): BP systolic 86–126; BP diastolic 63–89
[2024-04-27] MEDS ORDERED: GABA300 PO (00:31)
[2024-04-27] MEDS ORDERED: NS 1,000 ML IV SCH ×2 (01:10→06:10)
[2024-04-27] MEDS ORDERED: Sodium Chloride For Inhalation 7% 4 ML VIAL.NEB INH SCH (01:40)
[2024-04-27] MEDS ORDERED: Mycophenolate Mofetil 250 MG Cap PO SCH ×2 (02:10→09:00)
[2024-04-27] MEDS ORDERED: Tacrolimus 1 MG Cap PO SCH ×3 (02:10→21:00)
[2024-04-27 04:20] LABS: BASOPHILS ABSOLUTE AUTO 0.02 K/mm3 (0.00-0.23); BASOPHILS PERCENT AUTO 0 % (0-2); EOSINOPHILS PERCENT AUTO 0 % (0-6); Hematocrit 37.7 % (37.0-53.0); Hemoglobin 11.9 g/dL (13.5-17.5); IMMATURE GRAN ABSOLUTE AUTO 0.04 K/mm3 (0.00-0.10); IMMATURE GRAN PERCENT AUTO 0 % (0-1); LYMPHOCYTES ABSOLUTE AUTO 1.83 K/mm3 (0.84-5.20); LYMPHOCYTES PERCENT AUTO 17 % (21-46); MONOCYTES ABSOLUTE AUTO 0.85 K/mm3 (0.16-1.47); MONOCYTES PERCENT AUTO 8 % (4-13); Mean Corpuscular HGB 29.2 pg (26.0-34.0); Mean Corpuscular HGB Conc 31.6 g/dL (31.5-36.5); Mean Corpuscular Volume 92 fL (80-100); Mean Platelet Volume 9.9 fL (9.1-12.4); NEUTROPHILS ABSOLUTE AUTO 8.12 K/mm3 (1.96-9.15); NEUTROPHILS PERCENT AUTO 75 % (41-73); Platelet Count 99 K/mm3 (150-400); RDW Coefficient Variation 14.3 % (11.7-14.2); RDW Standard Deviation 48.8 fL (35.1-46.3); Red Blood Cell Count 4.08 M/mm3 (4.30-5.90); White Blood Cell Count 10.86 K/mm3 (4.00-11.30)
--- NOTE | 2024-04-27 04:34 | NUR ---
ADMISSION/ EOS: PATIENT HAS BEEN ALERT AND ORIENTED X 4. ABLE TO MAKE NEEDS KNOWN, PLEASANT AND COOPERATIVE. PATIETN DOES ENDORSES MEDICATION INDUCED NERUOPATHY OF BLE FEET AND BUE HANDS. EXTENSIVE HISTORY OF MULTIPLE SURGERIES, OUTLINED IN H+P. PATIENT IS A PROFICIENT HISTORIAN. DENIES CHEST PAIN PRESSURE, BUT ENDORSES SOME MINOR SOB AT REST. CURRENLTY ON 6L VIA NC SPO2 >92%. PT HR HAS TANA UPPER 50'S TO 80'S, BLOOD PRESSURE ON ARRIVAL MILDLY SOFT MAP >65 BUT FOR PATIENT 90/70'S LOW WHILE NORMAL IS 120/80'S. SPOKE WITH PROVIDER IN REGARDS TO BLOOD PRESSURE, FLUIDS, AND HOME MEDICATIONS. SEE MAR FOR ORDERS. IMMUNOSUPRESSION MEDS GIVEN AND FLUIDS STARTED. BLOOD PRESSURE RESPONDED TO FLUIDS. RLE BASELINE LARGER. DID ENDORSE THAT HE STOPPED CPAP AND HOME O2 YEARS AGO HE OVERALL IMPROVED AT THAT TIME.
[2024-04-27 04:46] LABS: Albumin, Blood 2.7 g/dL (3.4-5.0); Albumin/Globulin Ratio 0.7 (0.8-1.8); Bilirubin, Total 0.4 mg/dL (0.1-1.0); Bun/Creatinine Ratio 17.9 (12.0-20.0); Calcium, Blood 8.2 mg/dL (8.5-10.1); Creatinine, Blood 2.34 mg/dL (0.60-1.20); Globulin, Blood 3.7 g/dL (2.2-4.0); Total Protein, Blood 6.4 g/dL (6.4-8.2)
[2024-04-27 05:16] LABS: Magnesium, Blood 1.8 mg/dL (1.6-2.4); Uric Acid, Blood 8.4 mg/dL (3.5-7.2)
[2024-04-27 05:40] LABS: Phosphorus, Blood 5.7 mg/dL (2.5-4.9)
[2024-04-27 06:08] LABS: Thyroid Stimulating Hormone 0.918 uIU/mL (0.360-4.800)
--- NOTE | 2024-04-27 08:01 | NUR ---
Pt alert, oriented x 4 this morning, states that he is feeling not much better than arrival, but maybe a little better. Allyson at the bedside. Pt went into the bathroom while on 6 l/mn O2 with spo2 90%, had diarrhea BM and voided. Upon return to bed he did not appear dyspneic but had spo2 79% and said that he "felt it". Increased oxygen gradually to 12 l/min to obtain spo2 86% but could not get improvement until non-rebreather mask was used. It took at least 10 minutes for his spo2 to improve and maintain spo2 88-91% and the non rebreather could be removed. He is still on 12 l/min to keep spo2 at least 88%. He had no distress nor obvious dyspnea during this time. Recommended pt use the bedside commode and increase O2 flow before and during activity in the future. PILOT BOAT CAPTAIN also notified.
[2024-04-27] MEDS ORDERED: Oseltamvir Phosphate 30 MG Cap PO SCH (09:00)
[2024-04-27] MEDS ORDERED: Calcitriol 0.25 MCG Cap PO SCH (09:00)
[2024-04-27] MEDS ORDERED: Midodrine 5 MG Tab PO SCH (09:00)
[2024-04-27] MEDS ORDERED: PredniSONE 5 MG Tab PO SCH (09:00)
[2024-04-27] MEDS ORDERED: Sodium Bicarbonate 650 MG Tab PO SCH ×2 (09:00)
[2024-04-27] MEDS ORDERED: Multivitamins/Minerals 1 Tab PO SCH (09:00)
[2024-04-27] MEDS ORDERED: Apixaban 5 MG Tab PO SCH (09:00)
[2024-04-27] MEDS ORDERED: Cholecalciferol 1000 Unit Tablet (=25MCG) PO SCH (09:00)
--- NOTE | 2024-04-27 10:01 | NUR ---
MD AT BEDSIDE: MD ROUNDED ON PATIENT AND PLAN WILL BE TO CONTINUE TO MONITOR. MD NOTIFIED OF THE INCREASED OXYGEN NEED WHEN GETTING UP TO BATHROOM. MD NOTIFIED PATIENT THAT WE WILL BE USING BED SIDE COMMODE AND URINAL FURTHER DUE TO THE LONG PERIOD OF RECOVERY. PATIENT HAS CALL LIHGT WITHIN REACH AND BED AT THE LOWEST POSITION.
--- NOTE | 2024-04-27 17:00 | NUR ---
SHIFT SUMMARY: PATIENT IS ALERT AND ORIENTED X4 AND ACTIVE IN HIS CARE. IS ON TELE SHOWING SINUS RYTHM WITH RATE IN 80'S. PATIENT BLOOD PRESSURES HAVE STABILIZED AND MIDODRINE WAS HELD PER EMAR. IS SATTING >92% ANYWHERE FROM 4-6 LITERS VIA HEATED HIGH FLOW NASAL CANNULA. PATIENT NOTIFIED THAT BEDSIDE COMMODE AND URINAL WILL BE USED DUE TO A LONG PERIOD OF RECOVERY AND PATIENT SATTING IN THE 80'S. A NON REBREATHER MASK WAS PLACED TO ALLOW PATIENT TO RECOVER. PATIENT GOT A RENAL ULTRASOUND DONE AND RESULTS FOR THAT IS IN THE CHART. FAMILY HAS BEEN AT BEDSIDE THROUGHOUT SHIFT. WILL CONTINUE TO MONITOR TILL SHIFT CHANGE TO ONCOMING DISTRICT OPERATIONS MANAGER RN.
[2024-04-28] VITALS (10 sets, daily range): BP systolic 109–132; BP diastolic 75–95
[2024-04-28 05:07] LABS: Hemoglobin 12.8 g/dL (13.5-17.5)
--- NOTE | 2024-04-28 05:21 | NUR ---
SHIFT SUMMARY PATIENT IS A+O X4, ABLE TO MAKE NEEDS KNOWN, REPOSTIONS SELF IN BED. ON NC SATURATING BETWEEN 89%-96% WHEN AT REST, ON 4 LITERS. PATIENT GOT UP TO THE BSC AND DESATURATED TO 80% AND OXYGEN HAD TO BE TITRATED UP TO 10 LITERS ON NC, RECOVERY AFTER MOVEMENT TAKES AWHILE. COUGH PRESENT THAT IS PRODUCTIVE AT TIMES. PATIENT HAD ONE LIQUID STOOL DURING SHIFT. USES URINAL TO VOID. SR ON TELE, DENIES CHEST PAIN OR PRESSURE. CALL LIGHT IN REACH, WILL CONTINUE TO TREAT UNTIL SHIFT CHANGE.
[2024-04-28 06:08] LABS: Albumin, Blood 2.7 g/dL (3.4-5.0); Anion Gap 11 mmol/L (3-11); Blood Urea Nitrogen 39 mg/dL (8-24); Bun/Creatinine Ratio 21.5 (12.0-20.0); CO2, Blood 17 mmol/L (21-32); Calcium, Blood 8.5 mg/dL (8.5-10.1); Chloride, Blood 113 mmol/L (98-108); Creatinine, Blood 1.81 mg/dL (0.60-1.20); Glomerular Filtration Rate 42 (60-); Glucose, Blood 89 mg/dL (70-99); Phosphorus, Blood 2.3 mg/dL (2.5-4.9); Potassium, Blood 4.7 mmol/L (3.5-5.5); Sodium, Blood 136 mmol/L (136-145)
[2024-04-28 06:09] LABS: Magnesium, Blood 1.7 mg/dL (1.6-2.4)
[2024-04-28] MEDS ORDERED: Sodium Phosphate 10 MM in Dextrose 5% 250 ML IV STA (06:37)
[2024-04-28] MEDS ORDERED: Sodium Bicarb 8.4% Inj 100 MEQ in Sodium Chloride 0.45% 1,000 ML IV SCH (07:00)
--- NOTE | 2024-04-28 07:15 | NUR ---
CALL PLACED TO MD: CALL WAS PLACED TO MD MARTINES TO VERIFY ORDERS.
--- NOTE | 2024-04-28 08:43 | NUR ---
ASSUMPTION OF CARE: THIS RN ASSUMED CARE OF PATIENT AT 07:00. PATIENT IS ALERT AND ORIENTED X4 AND ACTIVE IN HIS CARE. IS SATTING >92% ON 6 LITERS VIA NASAL CANNULA. ON TELE SHOWING SINUS WITH RATE IN 80'S. PATIENT AT BEDSIDE. PATIENT STATED ALREADY ROUNDED AND FLUIDS WERE ORDERED PER EMAR AND STARTED. PATIENT COMPLAINED OF HAVING SOME CHEST PAIN WHEN TRYING TO GET A DEEP BREATH IN. PATIENT DENIED FEELING SOB OTHERWISE. HAS BED IN LOWEST POSITION WITH CALL LIGHT WITHIN REACH, EVEN AND UNLABORED RESPIRATIONS.
[2024-04-28] MEDS ORDERED: Acetaminophen 325 MG TABLET PO PRN (08:50)
[2024-04-28] MEDS ORDERED: Azithromycin 250 MG Tab PO SCH (09:00)
--- NOTE | 2024-04-28 11:53 | NUR ---
TO BEDSIDE: MD HENNING TO BEDSIDE AND THIS RN NOTIFIED ABOUT POTENTIAL PARAMETERS FOR MIDODRINE. TO PUT IN ORDERS. PLAN WILL BE POSSIBLE DISCHARGE TOMORROW LABS ARE IMPROVING.
--- NOTE | 2024-04-28 14:10 | NUR ---
TELE NOTIFIED PATIENT WENT NARA AND IS IN THE 50'S. PATIENT DECLINES BEING SYMPTOMATIC AND VITAL SIGNS ARE STABLE. PATIENT RESTING WITH CALL LIGHT IN REACH AND BED AT LOWEST POSITION.
--- NOTE | 2024-04-28 18:21 | NUR ---
SHIFT SUMMARY: PATIENT IS ALERT AND ORIENTED X4 AND ACTIVE IN HIS CARE. ON TELE THROUGHOUT SHIFT AND WAS SINUS RYTHM TO SINUS NARA, ASYMPTOMATIC. PATIENT SATTING >92% ON 2 LITERS VIA NASAL CANNULA. PATIENT COMPLAINED OF CHEST PAIN AT THE BEGINNING OF SHIFT THAT CAME ON WHEN TRYING TO TAKE A DEEP BREATH. TYLENOL WAS ADDED TO EMAR AND GIVEN. PATIENT DID NOT COMPLAIN OF ANY FURTHER PAIN THROUGHOUT SHIFT. PATIENT HAD 1 BOUGHT OF DIARRHEA, ATE A LITTLE BIT OF FOOD AND HAD FAMILY AT BEDSIDE. PLAN WILL TO POSSIBLE DISCHARGE TOMORROW LABS ARE IMPROVING AND CONTINUE TO WEAN OFF OXYGEN. THIS RN WILL CONTINUE TO MONITOR UNTIL SHIFT CHANGE AND ONCOMING MOTION PICTURE COMMENTATOR RN WILL ASSUME CARE.
--- NOTE | 2024-04-28 21:46 | NUR ---
ASSUMED CARE OF THIS PATIET AT 1900. PATIENT IS A&O X4, ABLE TO MAKE NEEDS KNOWN. PER DAY SHIFT RN OXYGEN DEMANDS HAVE TRENDED DOWN DURING HER SHIFT. WHEN I ASSESSED THIS PATIENT HE WAS ON 2 LITERS NC SATURATING AT 94%, I ASSISTED THIS HIM TO THE BATHROOM AND HAD TO TITRATE HIS OXYGEN UP TO 5 LITERS. PATIENT RECOVERED FROM MOVEMENT MUCH FASTER THEN PREVIOUS NIGHT AND OXYGEN DELIVERY IS BACK DOWN TO 2 LITERS AT THIS TIME. SODIUM BICARB IN 1/2 NS REMAINS RUNNING AT 75. CALL LIGHT IN REACH.
[2024-04-29 04:09] VITALS: BP 127/95
--- NOTE | 2024-04-29 05:16 | NUR ---
SHIFT SUMMARY PATIENT IS A+O X4, ABLE TO MAKE NEEDS KNOWN. REPOSTIONS SELF IN BED. VSS, PT IS STILL ON NC BETWEEN 2-4 LITERS, PATIENT HAS HAD TO BE TURNED UP TO 4 LITERS WITH ACTIVITY. 2 LITERS NC AT REST, PATIENT SATTING 92% AND ABOVE WHEN AT REST. PT WAS ASSITED TO THE BATHROOM TWICE DURING SHIFT AND VOIDED MICAELA COLORED URINE AND HAD TWO LOOSE STOOLS. PATIENT DENIES PAIN OF ANY KIND. CALL LIGHT IN REACH, WILL CONTINUE TO TREAT.
[2024-04-29 05:32] LABS: Hematocrit 38.7 % (37.0-53.0); Hemoglobin 12.6 g/dL (13.5-17.5)
[2024-04-29 06:07] LABS: Albumin, Blood 2.6 g/dL (3.4-5.0); Anion Gap 11 mmol/L (3-11); Blood Urea Nitrogen 38 mg/dL (8-24); Bun/Creatinine Ratio 24.5 (12.0-20.0); CO2, Blood 19 mmol/L (21-32); Calcium, Blood 8.4 mg/dL (8.5-10.1); Chloride, Blood 111 mmol/L (98-108); Creatinine, Blood 1.55 mg/dL (0.60-1.20); Glomerular Filtration Rate 50 (60-); Glucose, Blood 85 mg/dL (70-99); Magnesium, Blood 2.1 mg/dL (1.6-2.4); Phosphorus, Blood 2.5 mg/dL (2.5-4.9); Potassium, Blood 4.1 mmol/L (3.5-5.5); Sodium, Blood 137 mmol/L (136-145)
[2024-04-29 08:03] VITALS: BP 131/102
--- NOTE | 2024-04-29 08:16 | NUR ---
ASSUMPTION FOC ARE: THIS RN ASSUMED CARE OF PATIENT. VITAL SIGNS DONE AND PATIENT STABLE. PATIENT STATED HE DIDN'T FEEL HUNGRY WHEN BREAKFAST WAS BROUGHT IN. PATIENT TOOK MEDS WHOLE WITHOUT A PROBLEM. IS RESTING WITH BED IN LOWEST POSITION AND CALL LIT WITHIN REACH. PATIENT AWAITING FOR MD TO ROUND REGARDING GOING HOME OR NOT.
[2024-04-29] MEDS ORDERED: Oseltamvir Phosphate 30 MG Cap PO SCH (09:00)
--- NOTE | 2024-04-29 10:18 | NUR ---
MD AT BEDSIDE: MD RUIZ CAME TO BEDSIDE. CHANGED STATUS TO MEDICAL WITH TELE. MD TO ORDER REDRAW OF PHOSPOROUS AND MAGNESIUM LEVEL. MD STATED HE WOULD LIKE THE PATIENT TO GET AROUND MORE TO BE ABLE TO POTENTIALLY DISCHARGE TOMORORW.
[2024-04-29 12:41] VITALS: BP 154/103
--- NOTE | 2024-04-29 15:32 | NUR ---
HANDOFF REPORT: THIS RN TO HAND OVER CARE TO JOANN WALKER. PATIENT IS MEDICAL WITH TELE STATUS. PATIENT IS ALERT AND ORIENTED X4 AND ACTIVE IN HIS CARE. IS ABLE TO MAKE NEEDS KNOWS AND USES CALL LIGHT APPROIRATELY. IS ON TELE SHOWING SINUS NARA WITH RATE IN 50'S. SATTING >92% CURRENTLY ON ROOM AIR, DOES NEED TO BE OXYGENATED AND EVEN HYPER OXYGENATED AT TIMES. PATIENT WAS ABLE TO TAKE A SHOWER AND TOLERATED IT WELL. HAS BEEN AT BEDSIDE. PLAN IS TO STAY POSSIBLE ONE MORE NIGHT AND TRY TO WEAN OFF OXYGEN. PATIENT OKAY WITH THIS AND FAMILY KNOWS THAT PATIENT WILL BE MOVING TO THE THIRD FLOOR WHEN A ROOM BECOMES AVAILABLE.
[2024-04-29 17:37] VITALS: BP 146/107
--- NOTE | 2024-04-29 17:55 | NUR ---
TRANSFER SUMMARY: REPORT RECEIVED BY RAMBO WALKER. DROPLET ISO SET UP. PT TX TO ROOM 328 VIA HOSPITAL BED. PT A/O X4, ABLE TO MAKE NEEDS KNOWN. ANSWERS QUESTIONS APPROPRIATELY. PT ORIENTED TO ROOM, CALL LIGHT AND MEDICAL FLOOR PROCEDURES. PT V/U. PT DENIES NEEDS AT THIS TIME. DINNER TRAY ARRIVED AND PT EATING. NO CONCERNS AT THIS TIME.
[2024-04-29 19:51] VITALS: BP 143/108
[2024-04-30 04:50] LABS: CMV ANTIBODY IGG >10.00 U/mL (<=0.70); CMV ANTIBODY IGM 28.8 AU/mL (<=29.9)
[2024-04-30 05:02] VITALS: BP 142/97
--- NOTE | 2024-04-30 06:09 | NUR ---
SHIFT SUMMARY RESTED WELL OVERNIGHT ON ROOM AIR WITH NO RESP DISTRESS AND 02 SATS WNL. STATES FEELS MUCH BETTER THAN HE DID, ABEFRILE, BP OF 147/97 THIS A.M. VOIDING NORMALLY, NO DIARRHEA, HAD A LOOSE STOOL BUT WAS ONLY SCANT AMT, NO VOICED COMPALINTS. CALLS APPROPRIATELY FOR SBA TO BATHROOM. NO ADVENTITIOUS LUNG SOUNDS NOTED HOWEVER THEY ARE DIMINISHED. IVF OF BICARB SOLN AT 75 ML /HR CONTINUOUSLY IS ONGOING. ORDERED A.M. LABS DRAWN BY LAB.
[2024-04-30 06:53] LABS: Hematocrit 35.7 % (37.0-53.0); Hemoglobin 11.6 g/dL (13.5-17.5)
[2024-04-30 07:12] LABS: Albumin, Blood 2.4 g/dL (3.4-5.0); Anion Gap 10 mmol/L (3-11); Blood Urea Nitrogen 29 mg/dL (8-24); Bun/Creatinine Ratio 20.6 (12.0-20.0); CO2, Blood 25 mmol/L (21-32); Calcium, Blood 8.5 mg/dL (8.5-10.1); Chloride, Blood 109 mmol/L (98-108); Creatinine, Blood 1.41 mg/dL (0.60-1.20); Glomerular Filtration Rate 56 (60-); Glucose, Blood 79 mg/dL (70-99); Phosphorus, Blood 1.8 mg/dL (2.5-4.9); Potassium, Blood 3.6 mmol/L (3.5-5.5); Sodium, Blood 140 mmol/L (136-145)
[2024-04-30] MEDS ORDERED: Sodium Phosphate 20 MM in Dextrose 5% 500 ML IV STA (07:23)
[2024-04-30 09:16] VITALS: BP 147/105
[2024-04-30] MEDS ORDERED: Carvedilol 6.25 MG Tab PO SCH (10:00)
[2024-04-30] MEDS ORDERED: MIDO5 PO (11:45)
[2024-04-30] MEDS ORDERED: OSEL75CA PO (11:46)
--- NOTE | 2024-04-30 14:49 | NUR ---
DISCHARGE SUMMARY: PT DISCHARGED HOME TODAY. PT DID HOME O2 EVAL AND DID NOT NEED OXYGEN. SATS REMAINED AT 97% WITH AMBULATION. PT ENCOURAGED TO CONTINUE TO USE IS AND FLUTTER THERAPY AT HOME UNTIL HE IS BACK TO BASELINE. PT EDUCATED ON DISCHARGE MEDICATIONS AND INSTRUCTIONS. PT V/U. ASSISTED PT WITH PACKING UP BELONGINGS. PT ESCORTED TO POV VIA WHEELCHAIR. PICKED PT UP.
[2024-04-30 19:21] LABS: TACROLIMUS BY HPLC-MS/MS 3.9 ng/mL
[2024-04-30] MEDS ORDERED: Oseltamivir Phosphate 75 MG Cap PO SCH (21:00)
== END 2024-04-30 13:01 | disposition home or self-care (01) | DRG 871 ==
LOC: ER 17:51 → PCU 22:44 → MEDS 04-29 17:29 → ENPENDDIS 04-30 12:48 → MEDS 04-30 13:01
PROVIDERS: Internal Medicine Nephrology; Physician Assistant; Student in an Organized Health Care Education/Training Program; ADMIT Internal Medicine
DX: A41.9 Sepsis, unspecified organism (principal); J96.01 Acute respiratory failure with hypoxia; N18.6 End stage renal disease; D84.821 Immunodeficiency due to drugs; J44.0 Chronic obstructive pulmonary disease with (acute) lower respiratory infection; N17.9 Acute kidney failure, unspecified; Z94.0 Kidney transplant status; I12.0 Hypertensive chronic kidney disease with stage 5 chronic kidney disease or end stage renal disease; E87.20 Acidosis, unspecified; N25.81 Secondary hyperparathyroidism of renal origin; J10.1 Influenza due to other identified influenza virus with other respiratory manifestations; M10.9 Gout, unspecified; J47.9 Bronchiectasis, uncomplicated; E86.9 Volume depletion, unspecified; E87.5 Hyperkalemia; D63.1 Anemia in chronic kidney disease; I95.9 Hypotension, unspecified; M48.061 Spinal stenosis, lumbar region without neurogenic claudication; E83.39 Other disorders of phosphorus metabolism; Z79.01 Long term (current) use of anticoagulants; Z79.899 Other long term (current) drug therapy; Z85.46 Personal history of malignant neoplasm of prostate; Z90.49 Acquired absence of other specified parts of digestive tract; Z86.718 Personal history of other venous thrombosis and embolism
CPT/HCPCS: 36415; 71046; 76770; 76776; 80053; 80069; 80197; 82533; 82550; 82947; 83735; 84100; 84443; 84550; 85014; 85018; 85025; 86644; 86645; 87428-QW; 94640; 94664; 94760; 94761; 94762; 96361; 96374; 99285-25; A9270; J2405; J7030; J7060; J7507; J7512; J7517

== ENCOUNTER → 2025-01-01 | Outpatient (CLI) | payer MEDICARE, OTHER ==
[~2025-01-01] MED LIST changes: +GABA300 PO; +MIDO5 PO; +OSEL75CA PO
== END ==
LOC: LAB SHORT 11:01 → LAB 11:01
DX: J47.9 Bronchiectasis, uncomplicated (principal)
CPT/HCPCS: 87070; 87077; 87186; 87205

== ENCOUNTER → 2025-01-02 | Outpatient (CLI) | payer MEDICARE, OTHER | END | disposition home or self-care (01) | LOC: LAB 13:40 → LAB SHORT 13:40 | DX: J47.9 Bronchiectasis, uncomplicated (principal) | CPT/HCPCS: 87116 ==

== ENCOUNTER → 2025-01-03 | Outpatient (CLI) | payer MEDICARE, OTHER | END | disposition home or self-care (01) | LOC: LAB SHORT 16:04 → LAB 16:04 → LAB FUT 01-02 14:45 | DX: J47.9 Bronchiectasis, uncomplicated (principal) | CPT/HCPCS: 87116 ==